=== PATIENT | female | born 1950 | race Caucasian/White ===

== ENCOUNTER 2016-06-09 09:31 | Day surgery (SDC) | payer MEDICARE ==
[~2016-06-09] VITALS: Ht 170.2 cm; Wt 59.0 kg
[~2016-06-09 09:31] MED LIST: ASCO-294 PO; CALC-952 PO; LISI-571 PO; Lactated Ringer's 1,000 ML IV ONE; MULT1CAP33 PO
[2016-06-09] MEDS ORDERED: Propofol 10,000 mCg/mL 20 mL Inj ONE (09:32)
[2016-06-09 10:02] VITALS: BP 149/97; PULSE 106; RESP 16; O2SAT 98
[2016-06-09] MEDS ORDERED: ASPI-973 PO (10:02)
[2016-06-09] MEDS ORDERED: Lactated Ringer's 1,000 ML IV SCH (10:29)
[2016-06-09] MEDS ORDERED: Ondansetron 2 mg/mL 2 mL Inj IVPUSH PRN (10:30)
[2016-06-09] MEDS ORDERED: MetoCLOpramide 5 mg/mL 2 mL Inj IVPUSH PRN (10:30)
[2016-06-09 11:04] VITALS: BP 109/77; PULSE 81; RESP 14; O2SAT 99
[2016-06-09 11:13] VITALS: BP 125/87; PULSE 90; RESP 14; O2SAT 98
[2016-06-09 11:15] VITALS: BP 121/91; PULSE 90; RESP 14; O2SAT 99
--- NOTE | 2016-06-09 11:37 | ENDO ---
[address] [address] ENDOSCOPY PROCEDURE PATIENT: AMANDO GAINES : 1950 MR#: [id number] ADMIT: 06/09/2016 JOB ID: [id number] PRIMARY PROVIDER: Nuvia Lemus MD PROCEDURE: Colonoscopy with biopsies. INDICATION: A 66-year-old female with a change in bowel habit. She has had recent tendency towards diarrhea, loose stool. She has actually started to respond quite nicely to ground flaxseed fiber supplementation of late. Lifelong she has had a tendency towards constipation. EQUIPMENT: PCAlegr[address] H [address] AL. SEDATION: Monitored anesthesia as provided by Dr. Angel Moreland. COMPLICATIONS: None identified. BOWEL PREPARATION: Fair, adequate exam. PROCEDURE INFORMATION: After the risks and benefits were explained, written and verbal informed consent was obtained. The patient was brought into the endoscopy suite and placed into the left lateral decubitus position. Sedation was achieved as above. A digital rectal examination accomplished. No significant pathology appreciated. The scope was introduced into the rectum and advanced under direct visualization to the level of the cecum, as identified by the appendiceal orifice and ileocecal valve. The scope was slowly withdrawn to carefully examine the mucosa for any defects or lesions. Retroflexed views were avoided in the rectum. Multiple direct views were made through the dentate line for exclusion of pathology. The colon was decompressed and the scope removed from the patient, who tolerated the procedure well. FINDINGS: No evidence of macroscopic colitis throughout. Rather twisty left colon. Somewhat challenging navigation initially. Terminal ileum was interrogated and appeared visually normal. Random colon biopsies were taken for exclusion of microscopic disease. ENDOSCOPIC DIAGNOSES: Visually unremarkable colonoscopy to cecum. RECOMMENDATIONS: 1. Await histopathology. 2. For now, continue 2 tablespoons ground flaxseed fiber supplementation mixed with 8 ounces of water or juice at least once a day up to twice depending on clinical response. 3. Follow up in GI Clinic any time as needed.
--- NOTE | 2016-06-09 14:37 | PCM.HPANE ---
Patient Data Surgeon Admitting Provider: Attending Provider:Koko Mccabe MD Primary Care Physician:Nuvia Lemus MD Other Provider:[facility] Anesthesia Reason for Visit Diarrhea Ht/WT & BMI Body Mass Index Allergies Coded Allergies: Penicillins (Verified Allergy, Unknown, 01/17/15) Sulfa (Sulfonamide Antibiotics) (Verified Allergy, Unknown, 06/05/16) carbamazepine (Verified Allergy, Unknown, 06/09/16) Medications Reported Medications Aspirin 81 Mg Crfqyd35 Mg PO DAILY Ref 0 06/09/16 Ascorbate Calcium (Vitamin C)500 Mg [id number] Mg PO DAILY 06/05/16 Multivitamin (Multivitamins)1 Each Capsule1 Each PO DAILY 06/05/16 Lisinopril 5 Mg Tablet5 Mg PO DAILY #30 TABLET Ref 0 06/05/16 Calcium Carbonate/Vitamin D3 (Calcium 500 mg Chewable Tablet)1 Each Tab.chew1 Each PO DAILY 06/05/16 Stop/Bang Risk Assessment Category Category 1A: Patient has history of documented sleep apnea, and HAS NOT received any narcotic, sedative or anesthesia administration during this stay. Category 1B: Patient has history of documented sleep apnea, and HAS received any narcotic , sedative or anesthesia administration during this stay Category 2: Patient has SUSPECTED Obstructive Sleep Apnea, and HAS received any narcotic , sedative or anesthesia administration during this stay. Category 3: Patient has SUSPECTED Obstructive Sleep Apnea and HAS NOT received narcotic, sedative or anesthesia administration during this stay. Category 4: Outpatient in Procedural Areas with known sleep apnea or who screen positive for High Risk via the STOP/BANG questionnaire. Exam Exam General Appearance: Alert, Oriented X3, Cooperative, No Acute Distress HEENT/AIRWAY: MP 2 Lungs: Clear to Auscultation, Normal Air Movement Heart: Exam Unremarkable, Regular Rate/Rhythm, No Murmurs/Rubs/Gallops Plan Impression Patient chart reviewed, patient interviewed and anesthestic plan with risks, benefits, and alternatives discussed, and informed consent obtained. NPO Status: > 8HRS ASA Physical Status: ASA2 Mod Systemic Disease Anesthetic Plan: MAC Bene/Risks/Altern/Consents: Yes HP Complete Prior to Induction: Yes Angel Moreland MD Jun 09, 2016 07:30
--- NOTE | 2016-06-09 14:38 | PCM.ANEP2 ---
Post Anesthesia Evaluation ASA/CMS Post Anesthesia VS in Patient's Normal Range?: Yes Resp Stable; Airway Patent?: Yes CV Function & Hydration Stable: Yes Mental Status Recovered?: Yes Pain control Satisfactory?: Yes N/V Control Satisfactory?: Yes Angel Moreland MD Jun 09, 2016 14:38
--- NOTE | 2016-06-09 14:38 | PCM.ANEP1 ---
Post Anesthesia Phase 1 PACU Phase 1 Assessment Vital Signs Vital Signs Date Time Temp Pulse Resp B/P Pulse Ox O2 Delivery O2 Flow Rate FiO2 06/09/16 11:15 90 14 121/91 99 Room Air 06/09/16 11:13 90 14 125/87 98 Room Air 06/09/16 11:04 36.5 81 14 109/77 99 Room Air 06/09/16 10:02 106 16 149/97 98 Room Air Anesthetic Administered: MAC Level of Alertness: Awake, talking MOORE's with Equal Strength: Yes Pain: No Nausea or Vomiting: No Oxygen Delivery: Room Air Lungs: Clear to Auscultation, Normal Air Movement Dermatome Level: Full Sensation Angel Moreland MD Jun 09, 2016 14:38
--- NOTE | 2016-06-10 12:32 | PATH ---
SURGICAL PATHOLOGY Attending Physician:Jorge Gonzalez CASE STATUS: Signed Out PATIENT NAME: AMANDO GAINES PID: [id number] : 1950 DATE COLLECTED:06/09/2016 15:37 SPECIMEN: Colon, Biopsy CLINICAL HISTORY: RANDOM COLON BX FINAL DIAGNOSIS: 1.RANDOM COLON BIOPSIES: FRAGMENTS OF NORMAL-APPEARING COLON MUCOSA. Negative for significant architectural distortion. Negative for significant inflammation, dysplasia and malignancy. ICD10 code R19.7 GROSS DESCRIPTION: The specimen is received in one formalin filled container labeled with the patient's name, sublabeled "random colon" and consists of 2 portions of tissue which aggregate to 0.4 x 0.3 x 0.2 CM. The specimen is entirely submitted in one cassette. 06/09/2016 [facility] MICRO DESCRIPTION: See diagnosis. ICD-9 CODES: CPT CODES: 1: 01961 Electronically Signed Out Koko Perla MD [facility] Pathology [facility] [address], [place] [address] Technical component performed at [facility], [facility] [address], [address]
== END 2016-06-09 23:59 | disposition home or self-care (01) ==
LOC: END 09:31
PROVIDERS: ATTEND Internal Medicine Gastroenterology
DX: R19.7 Diarrhea, unspecified (principal); I10 Essential (primary) hypertension; G50.0 Trigeminal neuralgia; Z79.82 Long term (current) use of aspirin
CPT/HCPCS: 45380; J7120